=== PATIENT | male | born 1945 | race Hispanic/Latino ===

== ENCOUNTER 2021-08-25 03:27 | Inpatient (IN) | payer SELFPAY ==
[2021-08-25 16:11] VITALS: BMI 20.6
[2021-08-25] MEDS ORDERED: Acetaminophen 325 MG TAB PO PRN (17:13)
[2021-08-25] MEDS ORDERED: Ondansetron PF 4 MG/2 ML Vial IVP PRN (17:13)
[2021-08-25] MEDS ORDERED: Bisacodyl 5 MG TAB PO PRN (17:13)
[2021-08-25] MEDS: Sodium Chloride 0.9% 1,000 ML IV SCH (18:15)
[2021-08-25] MEDS ORDERED: HumaLOG 300 UNITS/3 ML VIAL SC PRN ×2 (18:23→22:32)
[2021-08-25] MEDS ORDERED: Dextrose 5% in Water 1,000 ML IV PRN ×2 (18:23→22:32)
[2021-08-25] MEDS ORDERED: Dextrose 50% Abboject 50 ML SYRINGE SLOW IVP PRN ×2 (18:23→22:32)
[2021-08-25] MEDS ORDERED: hydrALAZINE 20 MG/ML VIAL SLOW IVP PRN (18:24)
[2021-08-26 05:36] LABS: #Basophils 0.1 thou/uL (0.0-0.2); #Eosinphils 0.5 thou/uL (0.0-0.7); #Lymphocytes 3.4 thou/uL (1.20-3.40); #Monocytes 0.9 thou/uL (0.11-0.59); #Neutrophils 5.4 thou/uL (1.40-6.50); %Eosinophils 5.2 % (0.0-10.0); %Lymphocytes 32.7 % (21.0-51.0); %Monocytes 8.5 % (0.0-10.0); %Neutrophils 52.6 % (42.0-75.0); Hemoglobin 17.3 g/dL (14.0-18.0); Mean Corpuscular HGB CONC 34.3 g/dL (32.0-36.0); Mean Corpuscular Hemoglobin 30.5 pg (27.0-31.0); Mean Platelet Volume 7.3 fL (7.4-10.4); Platelet Count 287 thou/uL (130-400); RBC Distribution Width 12.5 % (11.5-14.5); Red Blood Cell (RBC) Count 5.66 mill/uL (4.70-6.10); White Blood Cell (WBC) Count 10.3 thou/uL (4.8-10.8)
[2021-08-26 05:56] LABS: Anion Gap 16 mmol/L (10-20); BUN (Urea Nitrogen) 19 mg/dL (8.4-25.7); Calc. Creatinine Clearance 51 mL/min (70-130); Calcium 9.5 mg/dL (7.8-10.44); Carbon Dioxide 18 mmol/L (23-31); Chloride 105 mmol/L (98-107); Glucose 195 mg/dL (83-110); Potassium 3.9 mmol/L (3.5-5.1); Sodium 135 mmol/L (136-145)
[2021-08-26 06:00] LABS: ALT (SGPT) 15 U/L (8-55); AST (SGOT) 14 U/L (5-34); Albumin 3.9 g/dL (3.4-4.8); Alkaline Phosphatase 121 U/L (40-110); Bilirubin, Direct 0.3 mg/dL (0.1-0.3); Protein, Total 7.4 g/dL (5.8-8.1)
[2021-08-26] MEDS ORDERED: ADENOSINE 60 MG/20 ML VIAL ONE (09:37)
[2021-08-26] MEDS: Enoxaparin Sodium 40 MG/0.4 ML SYRINGE SC SCH (13:55)
[2021-08-26] MEDS: Sodium Chloride 0.9% 1,000 ML IV SCH ×2 (13:56→21:36)
[2021-08-26] MEDS: Insulin Regular 300 UNITS/3 ML VIAL SC SCH (21:36)
[2021-08-27] MEDS ORDERED: Magnevist 469MG/ML 20 ML VIAL ONE (09:44)
[2021-08-27] MEDS: Enoxaparin Sodium 40 MG/0.4 ML SYRINGE SC SCH (09:49)
[2021-08-27] MEDS: Insulin Regular 300 UNITS/3 ML VIAL SC SCH ×2 (09:49→11:24)
[2021-08-27 11:59] VITALS: BP 142/79; TEMP 98.1
== END 2021-08-27 12:01 | disposition home or self-care (01) | DRG 312 ==
LOC: 2NO 15:52 → OBSVTOIN 08-26 14:29
PROVIDERS: ADMIT Student in an Organized Health Care Education/Training Program; ATTEND Internal Medicine
DX: R55 Syncope and collapse (principal); N17.9 Acute kidney failure, unspecified; E87.1 Hypo-osmolality and hyponatremia; Z20.822 Contact with and (suspected) exposure to COVID-19; E11.9 Type 2 diabetes mellitus without complications; E78.5 Hyperlipidemia, unspecified; I10 Essential (primary) hypertension; G93.89 Other specified disorders of brain; I08.1 Rheumatic disorders of both mitral and tricuspid valves; Z88.0 Allergy status to penicillin; Z79.4 Long term (current) use of insulin
CPT/HCPCS: 36415; 36416; 70553; 78452; 80048; 80076; 85025; 93017; 93306; 95819; 95957; 96372; A9500; G0378; J0153; J1650; J1815; J7050